=== PATIENT | male | born 1960 | race Two or more races ===

== ENCOUNTER 2022-12-03 08:15 | Day surgery (SDC) | payer OTHER ==
[~2022-12-03] VITALS: Ht 170.2 cm; Wt 56.7 kg
[2022-12-03] MEDS ORDERED: PERCOCET 5-3251 EACH PO (15:35)
== END 2022-12-03 20:45 | disposition home or self-care (01) ==
LOC: CIR.AMB 08:15
PROVIDERS: ATTEND Surgery
DX: N52.01 Erectile dysfunction due to arterial insufficiency (principal); Z91.011 Allergy to milk products; Z20.822 Contact with and (suspected) exposure to COVID-19
CPT/HCPCS: 54405; C1813